=== PATIENT | male | born 1950 | race Caucasian/White ===

== ENCOUNTER → 2021-06-22 | Outpatient (CLI) | payer OTHER | LOC: M PLARAD 13:25 | PROVIDERS: ATTEND Internal Medicine Pulmonary Disease | DX: R91.1 Solitary pulmonary nodule (principal) | CPT/HCPCS: 78815; A9552 ==

== ENCOUNTER → 2022-06-22 | Outpatient (CLI) | payer MEDICARE, OTHER ==
[2022-06-22 14:49] LABS: HEMATOCRIT 28.8 % (42.0-52.0); HEMATOCRIT 29.2 % (42.0-52.0); HEMOGLOBIN 9.3 g/dl (13.5-17.5); MEAN CORPUSCULAR HEMOGLOBIN 31.5 pg (27.0-33.0); MEAN CORPUSCULAR HGB CONC 32.3 g/dl (32.0-36.5); MEAN CORPUSCULAR VOLUME 97.6 fl (80.0-96.0); PLATELET COUNT, AUTOMATED 195 10^3/uL (150-450); RED BLOOD COUNT 2.95 10^6/uL (4.30-6.10); WHITE BLOOD COUNT 6.4 10^3/uL (4.0-10.0)
[2022-06-22 15:20] LABS: FERRITIN 17.8 NG/ML (10.5-307.3); FREE T4 1.05 NG/DL (0.89-1.76)
[2022-06-22 15:21] LABS: THYROID STIMULATING HORMONE 3.208 uIU/ML (0.55-4.78)
[2022-06-22 15:24] LABS: LDH LACTATE DEHYDROGENASE 203 U/L (120-246); TOTAL IRON BINDING CAPACITY 335 UG/DL (250-425)
[2022-06-22 15:25] LABS: ALBUMIN 3.6 G/DL (3.2-5.2); ALKALINE PHOSPHATASE 116 U/L (46-116); ALT/SGPT 21 U/L (7.0-40); AST/SGOT 9 U/L (<34); BILIRUBIN,TOTAL 0.5 MG/DL (0.3-1.2); BLOOD UREA NITROGEN 46 MG/DL (9-23); CALCIUM LEVEL 9.1 MG/DL (8.3-10.6); CARBON DIOXIDE LEVEL 30 MMOL/L (20-31); CHLORIDE LEVEL 110 MMOL/L (98-107); CREATININE FOR GFR 1.24 MG/DL (0.70-1.30); GLOMERULAR FILTRATION RATE > 60.0 (>42); GLUCOSE, FASTING 185 MG/DL (74-106); IRON (FE) 66 UG/DL (65-175); PERCENT SATURATION 19.7 % (19.7-50.0); POTASSIUM SERUM 4.9 MMOL/L (3.5-5.1); SODIUM LEVEL 142 MMOL/L (136-145); TOTAL PROTEIN 6.2 G/DL (5.7-8.2)
[2022-06-22 15:28] LABS: VITAMIN B12 LEVEL > 2000 PG/ML (211-911)
== END ==
LOC: M PLALAB 11:21
PROVIDERS: ATTEND Internal Medicine Hematology
DX: D64.89 Other specified anemias (principal)

== ENCOUNTER → 2024-03-26 | Outpatient (REF) | payer OTHER ==
[2024-03-26 16:37] LABS: BASO % 0.2 % (0.0-1.0); EOS # 0.1 10^3/uL (0.0-0.5); LYMPH # 0.9 10^3/uL (1.5-5.0); LYMPH % 14.4 % (24.0-44.0); MEAN CORPUSCULAR HEMOGLOBIN 32.2 pg (27.0-33.0); MEAN CORPUSCULAR HGB CONC 31.9 g/dl (32.0-36.5); MONO # 0.7 10^3/uL (0.0-0.8); MONO % 10.9 % (2.0-8.0); NEUTROPHILS # 4.6 10^3/uL (1.5-8.5); NEUTROPHILS % 73.2 % (36.0-66.0); RED BLOOD COUNT 2.02 10^6/uL (4.30-6.10)
[2024-03-26 16:47] LABS: ERYTHROCYTE SEDIMENTATION RATE 54 mm/hr (0-20)
[2024-03-26 17:08] LABS: C REACTIVE PROTEIN QUANTITATIV 1.8 MG/DL (<1.0)
[2024-03-26 17:10] LABS: ALBUMIN 2.3 G/DL (3.2-5.2); BILIRUBIN,TOTAL 0.3 MG/DL (0.3-1.2); CALCIUM LEVEL 9.6 MG/DL (8.3-10.6); CREATININE FOR GFR 1.36 MG/DL (0.70-1.30); GLOMERULAR FILTRATION RATE 54.7 (>42); POTASSIUM SERUM 4.6 MMOL/L (3.5-5.1); TOTAL PROTEIN 6.1 G/DL (5.7-8.2)
[2024-03-26 17:11] LABS: HEMOGLOBIN 6.5 g/dl (13.5-17.5); WHITE BLOOD COUNT 6.1 10^3/uL (4.0-10.0)
[2024-03-26 17:12] LABS: HEMATOCRIT 20.3 % (42.0-52.0); PLATELET COUNT, AUTOMATED 223 10^3/uL (150-450)
== END ==
LOC: M LAB REF 16:09
PROVIDERS: ATTEND Internal Medicine Infectious Disease
DX: I73.9 Peripheral vascular disease, unspecified (principal)

== ENCOUNTER → 2024-03-30 | Outpatient (REF) | payer OTHER ==
[2024-03-30 12:42] LABS: BASO % 0.3 % (0.0-1.0); EOS # 0.2 10^3/uL (0.0-0.5); EOS % 2.2 % (0.0-3.0); HEMATOCRIT 25.2 % (42.0-52.0); LYMPH % 14.1 % (24.0-44.0); MEAN CORPUSCULAR HEMOGLOBIN 30.5 pg (27.0-33.0); MEAN CORPUSCULAR HGB CONC 31.7 g/dl (32.0-36.5); MEAN CORPUSCULAR VOLUME 96.2 fl (80.0-96.0); MONO # 0.8 10^3/uL (0.0-0.8); MONO % 11.8 % (2.0-8.0); NEUTROPHILS # 4.8 10^3/uL (1.5-8.5); NEUTROPHILS % 71.3 % (36.0-66.0); PLATELET COUNT, AUTOMATED 211 10^3/uL (150-450); RED BLOOD COUNT 2.62 10^6/uL (4.30-6.10); WHITE BLOOD COUNT 6.8 10^3/uL (4.0-10.0)
[2024-03-30 12:52] LABS: ERYTHROCYTE SEDIMENTATION RATE 49 mm/hr (0-20)
[2024-03-30 13:07] LABS: C REACTIVE PROTEIN QUANTITATIV 2.4 MG/DL (<1.0)
[2024-03-30 13:08] LABS: ALBUMIN 2.3 G/DL (3.2-5.2); BILIRUBIN,TOTAL 0.4 MG/DL (0.3-1.2); CALCIUM LEVEL 8.6 MG/DL (8.3-10.6); CREATININE FOR GFR 1.4 MG/DL (0.70-1.30); GLOMERULAR FILTRATION RATE 52.9 (>42); POTASSIUM SERUM 4.2 MMOL/L (3.5-5.1)
== END ==
LOC: M LAB REF 12:15
PROVIDERS: ATTEND Internal Medicine Infectious Disease
DX: Z47.81 Encounter for orthopedic aftercare following surgical amputation (principal)

== ENCOUNTER → 2024-04-03 | Outpatient (REF) | payer OTHER ==
[2024-04-03 14:36] LABS: BASO % 0.5 % (0.0-1.0); EOS # 0.2 10^3/uL (0.0-0.5); EOS % 2.6 % (0.0-3.0); HEMATOCRIT 27.4 % (42.0-52.0); HEMOGLOBIN 8.5 g/dl (13.5-17.5); LYMPH # 1.4 10^3/uL (1.5-5.0); LYMPH % 22.4 % (24.0-44.0); MEAN CORPUSCULAR VOLUME 96.8 fl (80.0-96.0); MONO # 0.9 10^3/uL (0.0-0.8); MONO % 14.2 % (2.0-8.0); NEUTROPHILS # 3.7 10^3/uL (1.5-8.5); PLATELET COUNT, AUTOMATED 228 10^3/uL (150-450); RED BLOOD COUNT 2.83 10^6/uL (4.30-6.10); WHITE BLOOD COUNT 6.2 10^3/uL (4.0-10.0)
[2024-04-03 14:57] LABS: ALBUMIN 2.7 G/DL (3.2-5.2); BILIRUBIN,TOTAL 0.6 MG/DL (0.3-1.2); CALCIUM LEVEL 8.9 MG/DL (8.3-10.6); CREATININE FOR GFR 1.3 MG/DL (0.70-1.30); ERYTHROCYTE SEDIMENTATION RATE 61 mm/hr (0-20); GLOMERULAR FILTRATION RATE 57.6 (>42); POTASSIUM SERUM 4.6 MMOL/L (3.5-5.1); TOTAL PROTEIN 6.3 G/DL (5.7-8.2)
== END ==
LOC: M LAB REF 13:03
PROVIDERS: ATTEND Internal Medicine Infectious Disease
DX: Z47.81 Encounter for orthopedic aftercare following surgical amputation (principal)

== ENCOUNTER → 2024-04-09 | Outpatient (REF) | payer OTHER ==
[2024-04-09 11:43] LABS: BASO % 0.5 % (0.0-1.0); EOS # 0.1 10^3/uL (0.0-0.5); EOS % 1.6 % (0.0-3.0); HEMATOCRIT 24.9 % (42.0-52.0); LYMPH # 1.3 10^3/uL (1.5-5.0); LYMPH % 18.3 % (24.0-44.0); MEAN CORPUSCULAR HEMOGLOBIN 30.8 pg (27.0-33.0); MEAN CORPUSCULAR HGB CONC 32.1 g/dl (32.0-36.5); MEAN CORPUSCULAR VOLUME 95.8 fl (80.0-96.0); MONO # 0.8 10^3/uL (0.0-0.8); MONO % 10.4 % (2.0-8.0); NEUTROPHILS % 68.8 % (36.0-66.0); PLATELET COUNT, AUTOMATED 241 10^3/uL (150-450); WHITE BLOOD COUNT 7.3 10^3/uL (4.0-10.0)
[2024-04-09 11:56] LABS: ERYTHROCYTE SEDIMENTATION RATE 77 mm/hr (0-20)
[2024-04-09 13:18] LABS: ALBUMIN 2.8 G/DL (3.2-5.2); ALKALINE PHOSPHATASE 67 U/L (40-129); ALT/SGPT 16 U/L (7.0-40); AST/SGOT 16 U/L (<34); BILIRUBIN,TOTAL 0.5 MG/DL (0.3-1.2); BLOOD UREA NITROGEN 26 MG/DL (9-23); CALCIUM LEVEL 8.9 MG/DL (8.3-10.6); CARBON DIOXIDE LEVEL 27 MMOL/L (20-31); CHLORIDE LEVEL 108 MMOL/L (98-107); CREATININE FOR GFR 1.15 MG/DL (0.70-1.30); GLOMERULAR FILTRATION RATE > 60.0 (>42); GLUCOSE, FASTING 100 MG/DL (74-106); POTASSIUM SERUM 4.1 MMOL/L (3.5-5.1); SODIUM LEVEL 142 MMOL/L (136-145); TOTAL PROTEIN 6.1 G/DL (5.7-8.2)
== END ==
LOC: M LAB REF 10:36
PROVIDERS: ATTEND Internal Medicine Infectious Disease
DX: Z47.81 Encounter for orthopedic aftercare following surgical amputation (principal)